=== PATIENT | male | born 1980 | race Hispanic/Latino ===

== ENCOUNTER 2021-10-02 17:37 | Inpatient (IN) | payer SELFPAY ==
[2021-10-02] MEDS ORDERED: HALOPERIDOL LACTATE 5 MG/1 ML INJ IM ONE (17:41)
[2021-10-02] MEDS ORDERED: TETANUS,DIPH,PERTUSS(ACELL) VACCINE 0.5 ML SYRINGE IM ONE (17:43)
[2021-10-02] MEDS ORDERED: LACTATED RINGERS 1,000 ML IV ONE ×2 (17:43→19:55)
[2021-10-02] MEDS ORDERED: diphenhydrAMINE 50 MG/ML VIAL IM STA (17:44)
[2021-10-02] MEDS ORDERED: LORazepam 2 MG/ML VIAL IM STA (17:44)
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
[2021-10-02] MEDS ORDERED: KETAMINE 500 MG/5 ML VIAL MDV IV ONE ×2 (18:10→18:26)
[2021-10-02] MEDS ORDERED: KETAMINE 500 MG/5 ML VIAL MDV ONE (18:11)
[2021-10-02] MEDS ORDERED: ROCURONIUM 50 MG/5 ML INJ IV ONE ×2 (18:19→18:26)
[2021-10-02] MEDS ORDERED: LIP THERAPY VASELINE TP PRN (18:26)
[2021-10-02] MEDS ORDERED: MINERAL OIL/PETROLATUM, WHITE OPHTH OINT 3.5 GM OU PRN (18:26)
[2021-10-02 18:38] LABS: Bilirubin,Urine NEG (Negative); Blood,Urine SM (Negative); Color,Urine Colorless (Yellow); Protein,Urine <15 mg/dL mg/dL (Negative); Urobilinogen,Urine < 2.0 mg/dL (<2.0)
[2021-10-02 18:39] LABS: RBC,Urine < 1.0 /HPF (0.0-6.0); WBC,Urine < 1.0 /HPF (0.0-6.0)
[2021-10-02 18:46] LABS: Amphetamine Screen,Urine Negative; Benzodiazepines Screen,Urine Negative; Cocaine Screen,Urine Negative; Methadone Screen,Urine Negative; Opiate Screen,Urine Negative
[2021-10-02 18:58] LABS: Cannabinoid Screen,Urine Positive
[2021-10-02 19:04] LABS: Basophils # (Auto) 0.1 K/mm3 (0.0-0.1); Basophils % (Auto) 0.9 % (0.0-1.8); Eosinophils # (Auto) 0.3 K/mm3 (0.0-0.4); Eosinophils % (Auto) 4.7 % (0.0-4.3); Hematocrit 44.2 % (35.5-45.6); Hemoglobin 14.5 gm/dl (11.8-15.2); Lymphocytes # (Auto) 2.3 K/mm3 (1.2-5.4); Lymphocytes % (Auto) 32.9 % (13.4-35.0); Mean Corpuscular HGB Conc 33 % (32-34); Mean Corpuscular Volume 95 fl (84-94); Monocytes # (Auto) 0.4 K/mm3 (0.0-0.8); Monocytes % (Auto) 5.2 % (0.0-7.3); Platelet Count 189 K/mm3 (140-440); Red Blood Count 4.66 M/mm3 (3.65-5.03); Red Cell Distribution Width 12.4 % (13.2-15.2)
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
--- NOTE | 2021-10-02 19:10 | XRay Report ---
CHEST 1 VIEW INDICATION / CLINICAL INFORMATION: ETT placement. COMPARISON: None available. FINDINGS: SUPPORT DEVICES: Endotracheal tube noted with tip approximately 6 cm above the ayan. HEART / MEDIASTINUM: No significant abnormality. LUNGS / PLEURA: No significant pulmonary or pleural abnormality. No pneumothorax. ADDITIONAL FINDINGS: No significant additional findings. IMPRESSION: 1. Endotracheal tube noted with tip approximately 6 cm above the ayan. 2. No acute airspace disease. Signer Name: Kvng Snyder MD Signed: 10/02/2021 7:05 PM Workstation Name: [id number]
[2021-10-02 19:12] LABS: INR 0.97 (0.87-1.13)
[2021-10-02 19:13] LABS: Partial Thromboplastin Time 27.7 Sec. (24.2-36.6)
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
[2021-10-02 19:17] LABS: Alanine Aminotransferase 25 units/L (7-56); Albumin 4.1 g/dL (3.9-5); Blood Urea Nitrogen 6 mg/dL (9-20); Calcium 7.8 mg/dL (8.4-10.2); Hemolysis Index 6
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
[2021-10-02 19:34] LABS: ABG Base Excess -2.8 mmol/L (-2.0-3.0); ABG HCO3 25.3 mmol/L (20.0-26.0); ABG Methemoglobin 0.5 % (0.0-1.5); ABG Oxygen Saturation 99.6 % (95.0-99.0); ABG PCO2 57.5 mm Hg; ABG PH 7.261 pH Units (7.350-7.450)
[2021-10-02 19:42] LABS: ABG PO2 488.8 mm Hg (80.0-90.0)
[2021-10-02 19:42] LABS: BUN/Creatinine Ratio 10
--- NOTE | 2021-10-02 20:04 | XRay Report ---
RIGHT SHOULDER 2 VIEW(S) INDICATION / CLINICAL INFORMATION: right shoulder pain abrasion COMPARISON: None available. FINDINGS: BONES / JOINT(S): No acute fracture or dislocation.. Widening of the acromioclavicular joint measurin g 1.9 cm, could reflect AC separation. There are a few well-corticated ossicles regional to the dista l clavicle which may reflect remote fracture. SOFT TISSUES: No significant abnormality. ADDITIONAL FINDINGS: Endotracheal tube is in the mid trachea approximately 4.4 cm above the ayan.. Signer Name: Kvng Snyder MD Signed: 10/02/2021 8:00 PM Workstation Name: [id number]
--- NOTE | 2021-10-02 20:05 | XRay Report ---
RIGHT ELBOW 3 VIEW(S) INDICATION / CLINICAL INFORMATION: right elbow pain abraion COMPARISON: None available. FINDINGS: BONES / JOINT(S): No acute fracture or subluxation. Small enthesophyte along the olecranon process at the triceps insertion. SOFT TISSUES: No significant abnormality. ADDITIONAL FINDINGS: None. Signer Name: Kvng Snyder MD Signed: 10/02/2021 8:00 PM Workstation Name: [id number]
[2021-10-02] MEDS ORDERED: FAMOTIDINE 20 MG/2 ML INJ IV SCH (22:00)
[2021-10-02] MEDS ORDERED: SENNOSIDES/DOCUSATE SODIUM 8.6/50 MG TAB FEEDTUBE SCH (22:00)
[2021-10-02] MEDS ORDERED: LORazepam 2 MG/ML VIAL ONE (22:04)
[2021-10-02] MEDS ORDERED: LORazepam 2 MG/ML VIAL IV ONE (22:07)
[2021-10-02] MEDS ORDERED: ONDANSETRON 4 MG/2 ML INJ IV PRN (22:14)
[2021-10-02] MEDS ORDERED: ACETAMINOPHEN 325 MG TAB PO PRN (22:14)
[2021-10-02] MEDS ORDERED: MORPHINE 2 MG/1 ML INJ IV PRN (22:14)
[2021-10-02] MEDS ORDERED: ALBUTEROL 2.5 MG/3 ML NEBU IH PRN (22:14)
[2021-10-02] MEDS ORDERED: HYDROmorphone 1 MG/1 ML INJ IV PRN (22:14)
[2021-10-02] MEDS ORDERED: THIAMINE 100 MG, FOLIC ACID 1 MG, MULTIPLE VITAMIN INJ, ADULT 10 ML in SODIUM CHLORIDE ... IV ONE (22:16)
[2021-10-02] MEDS ORDERED: hydrALAZINE 20 MG/1 ML INJ IV PRN (22:16)
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
[2021-10-02] MEDS ORDERED: D5W/0.9% NACL 1,000 ML IV SCH (23:00)
[2021-10-02] MEDS ORDERED: MIDAZOLAM 5 MG/5 ML INJ MDV IV NR (23:45)
[2021-10-03] MEDS ORDERED: IPRATROPIUM/ALBUTEROL SULFATE 3 ML AMPUL.NEB IH SCH (03:00)
[2021-10-03 07:43] VITALS: BP 156/100
[2021-10-03] MEDS ORDERED: FLU VACC QUAD 2021-22(6MOS UP)/PF 60 MCG/0.5 ML SYRINGE IM ONE (12:00)
== END 2021-10-03 09:09 | disposition left against medical advice (07) | DRG 208 ==
LOC: ED 17:37 → CC1 22:14
PROVIDERS: ADMIT Hospitalist; ATTEND Internal Medicine
PROC: 5A1935Z Respiratory Ventilation, Less than 24 Consecutive Hours (ICD-10-PCS; principal; 2021-10-02)
PROC: 0BH17EZ Insertion of Endotracheal Airway into Trachea, Via Natural or Artificial Opening (ICD-10-PCS; 2021-10-02)
DX: J96.00 Acute respiratory failure, unspecified whether with hypoxia or hypercapnia (principal); S42.001A Fracture of unspecified part of right clavicle, initial encounter for closed fracture; S43.109A Unspecified dislocation of unspecified acromioclavicular joint, initial encounter; R93.2 Abnormal findings on diagnostic imaging of liver and biliary tract; M50.90 Cervical disc disorder, unspecified, unspecified cervical region; F10.929 Alcohol use, unspecified with intoxication, unspecified; Z53.29 Procedure and treatment not carried out because of patient's decision for other reasons; F17.200 Nicotine dependence, unspecified, uncomplicated; V02.90XA Pedestrian on foot injured in collision with two- or three-wheeled motor vehicle, unspecified whether traffic or nontraffic accident, initial encounter; Y93.89 Activity, other specified; Y92.89 Other specified places as the place of occurrence of the external cause; Y99.8 Other external cause status
CPT/HCPCS: 36415; 70450; 71045; 71260; 72125; 74177; 80053; 80307; 80320; 81001; 82550; 82803; 82962; 85025; 85610; 85730; 94002; 94640; 94760; G0378; J3490; Q0162; G0480; J2060; J2704; J3411; J7030; J7042; Q9967